=== PATIENT | female | born 1995 | race Caucasian/White ===

== ENCOUNTER 2017-04-05 10:37 | Outpatient (CLI) | payer OTHER ==
[2017-04-05 10:53] LABS: BASOPHILS % 0.6 (0.0-1.5); EOSINOPHILS % 3.6 % (0.0-6.8); MEAN CORPUSCULAR HEMOGLOBIN 26.3 pg (28.0-34.0); MEAN CORPUSCULAR VOLUME 85.6 fl (80.0-100.0); MONOCYTES % 4.4 % (0.0-11.0); NEUTROPHILS # 3.7 # k/uL (1.4-7.7)
[2017-04-05 11:18] LABS: BILIRUBIN,DIRECT 0.1 mg/dL (0.0-0.4)
== END 2017-04-05 10:40 ==
LOC: LAB 10:37
PROVIDERS: ATTEND Dermatology
DX: L70.0 Acne vulgaris (principal); Z79.899 Other long term (current) drug therapy
CPT/HCPCS: 36415; 80061; 80076; 84703; 85025

== ENCOUNTER → 2017-06-01 | Outpatient (CLI) | payer OTHER ==
[2017-06-01 20:20] LABS: BASO % 0.4 % (0.0-1.5); EOS % 1.7 % (0.0-6.8); MCH. 26.9 pg (28.0-34.0); MCV 84.3 fL (80.0-100.0); MONOCYTE % 4.6 % (0.0-11.0); MONOCYTE ABS # 0.39 thou/uL (0.00-0.90); PLATELET COUNT 388 thou/uL (130-400)
[2017-06-01 22:41] LABS: DIRECT BILIRUBIN <0.2 mg/dL (<0.4); TOTAL PROTEIN 7.2 g/dL (6.0-8.5)
== END ==
LOC: LAB 11:27
PROVIDERS: ATTEND Dermatology
DX: L70.0 Acne vulgaris (principal); Z79.899 Other long term (current) drug therapy
CPT/HCPCS: 36415; 80061; 80076; 84702; 85025